=== PATIENT | female | born 1960 | race African-American/Black ===

== ENCOUNTER 2024-06-26 17:21 | Emergency (ER) | payer OTHER ==
[~2024-06-26] VITALS: Ht 165.1 cm; Wt 81.0 kg
[~2024-06-26 17:21] MED LIST: TRIA25CA
[2024-06-26] MEDS: cloNIDine HCL 0.1 MG TAB PO ONE (17:37)
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
[2024-06-26] MEDS ORDERED: LOSA100T25 PO (19:16)
[2024-06-26 19:40] VITALS: PULSE 84; RESP 18; O2SAT 94
[2024-06-26] MEDS: IBUPROFEN 800 MG TAB PO ONE (20:50)
[2024-06-26 21:00] VITALS: BP 124/86; PULSE 86; RESP 18; O2SAT 97
--- NOTE | 2024-06-27 10:54 | ECG ---
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
== END 2024-06-26 21:05 | disposition home or self-care (01) ==
LOC: EDBD 17:21 → ER 17:21
DX: I16.0 Hypertensive urgency (principal); Z98.890 Other specified postprocedural states; V89.2XXA Person injured in unspecified motor-vehicle accident, traffic, initial encounter; Y93.89 Activity, other specified; Y92.89 Other specified places as the place of occurrence of the external cause; Y99.8 Other external cause status
CPT/HCPCS: 93005

== ENCOUNTER 2025-01-24 22:00 | Emergency (ER) | payer OTHER ==
[~2025-01-24] VITALS: Ht 160 cm; Wt 84.1 kg
[~2025-01-24 22:00] MED LIST changes: +LOSA100T25 PO
[2025-01-25 00:47] VITALS: BP 157/95; PULSE 88; RESP 18; TEMP 98.4; O2SAT 97
[2025-01-25] MEDS ORDERED: ACET500T58 PO (00:56)
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
--- NOTE | 2025-01-25 01:26 | DVH ---
RIGHTLEFT HUMORAL RADIOGRAPH. INDICATION: RIGHT HUMERUS/RIGHT SHOULDER PAIN TECHNIQUE: 2 radiographic views of the right humerus were obtained. COMPARISON: None Findings/ IMPRESSION: No acute fracture or dislocation. Osteophytosis of the humeral head.
--- NOTE | 2025-01-25 01:39 | DVH ---
EXAM: CT HEAD WITHOUT CONTRAST INDICATION: HEADACHE TECHNIQUE: CT of the head without intravenous contrast. Radiation Dose : 1. Head: CT Dose: CTDI volume is 50.49 mGy. Dose-length product is 1199.03 mGy*cm The dose indicators for CT are the volume Computed Tomography (CT) Dose Index (CTDIvol) and the Dose Length Product (DLP), and are measured in units of mGy and mGy-cm, respectively. These indicators are not patient dose, but values generated from the CT scanner acquisition factors. The report includes radiation exposure data for exposures received during this examination. COMPARISON: None FINDINGS: There is no evidence of acute intracranial hemorrhage, extra-axial collection, mass effect, midline s hift, herniation or hydrocephalus. The ventricles, sulci and cisterns are age appropriate. The zhang-white differentiation is intact. Patchy periventricular and subcortical white matter hypoattenuation is nonspecific but may be related to small vessel ischemic disease. The visualized paranasal sinuses and mastoid air cells are clear. The surrounding soft tissues and osseous structures are unremarkable. IMPRESSION: No acute intracranial abnormality.
--- NOTE | 2025-01-25 01:59 | DVH ---
EXAM: CT CERVICAL WITHOUT CONTRAST INDICATION: NECK PAIN EXAM DATE: 01/25/2025 12:49 AM COMPARISON: None TECHNIQUE: CT of the cervical spine without intravenous contrast. Radiation Dose Information: CT Dose: CTDI volume is 20 mGy. Dose-length product is 486 mGy*cm FINDINGS: The cervical alignment is intact. No acute cervical spine fracture is identified. The vertebral bod y heights are intact. No suspicious osseous lesions are identified. The craniocervical junction bryan ears intact. No significant degenerative changes are identified. There is no prevertebral soft tiss ue swelling. IMPRESSION: No evidence of acute cervical spine fracture or malalignment. END IMPRESSION:
== END 2025-01-25 02:13 | disposition home or self-care (01) ==
LOC: ER 22:02
DX: S16.1XXA Strain of muscle, fascia and tendon at neck level, initial encounter (principal); S40.011A Contusion of right shoulder, initial encounter; I10 Essential (primary) hypertension; Z79.899 Other long term (current) drug therapy; Z98.890 Other specified postprocedural states; V49.88XA Car occupant (driver) (passenger) injured in other specified transport accidents, initial encounter; Y93.I9 Activity, other involving external motion; Y92.488 Other paved roadways as the place of occurrence of the external cause; Y99.8 Other external cause status
CPT/HCPCS: 70450; 72125; 73060